=== PATIENT | male | born 1950 | race Caucasian/White ===

== ENCOUNTER → 2016-05-11 | Day surgery (SDC) | payer OTHER ==
[2016-04-27 13:02] VITALS: Ht 170.2 cm; Wt 53.6 kg
--- NOTE | 2016-05-10 14:59 | History and Physical: Surg Cnt ---
History & Physical Date May 10, 2016. Chief Complaint sinus infections History of Present Illness The patient is a 66 year old male with complaints of chronic sinusitis Additional History Hepatic Disease: No Endocrine Disorder: No Kidney Disease: No Hypertension: No Heart Disease: No Bleeding Tendencies: No Infectious Diseases: No Allergies Coded Allergies: NO KNOWN DRUG ALLERGIES (Verified Allergy, Unknown, ., 04/27/16) Home Medications Scheduled Ranitidine (Zantac), 150 MG PO HS Simvastatin (Zocor), 20 MG PO HS Physical Examination Skin: warm/dry, no rash Eyes: normal inspection, EOMI, sclerae normal ENT: normal ENT inspection, pharynx normal Head: normocephalic, atraumatic Neck: supple, no adenopathy, trachea midline Respiratory/Chest: lungs clear, normal breath sounds, no respiratory distress Cardiovascular: regular rate, rhythm, no edema, no murmur Abdomen / GI: normal bowel sounds, non tender Back: normal inspection Extremities: normal inspection, normal range of motion Neurologic/Psych: no motor/sensory deficits, alert, normal reflexes, oriented x 3 Diagnosis chronic sinusitis Plan of Treatment endoscopic sinus surgery
[~2016-05-11] VITALS: Ht 170.2 cm; Wt 53.6 kg
[~2016-05-11] MED LIST: ATROPINE SULFATE 0.1 MG/ML 5ML SYR IV PRN; BACITRACIN OINT 15 GM TUBE ONE; CEFAZOLIN 1000MG/55 ML D5W IV SCH; DEXAMETHASONE SOD INJ 4 MG/ML VIAL ONE; EpHEDrine SULFATE INJ 50 MG/ML AMP IV PRN; EpHEDrine SULFATE INJ 50 MG/ML AMP ONE; EpINEphrine INJ 1MG/ML AMP 1 MG/ML AMP ONE; FENTANYL CITRATE INJ 50 MCG/1 ML 2 ML VIAL IV PRN; FENTANYL CITRATE INJ 50 MCG/1 ML 2 ML VIAL ONE; LACTATED RINGER'S 1000ML 1,000 ML IV SCH; LIDO 2%/EPINEPHRINE 1:100000 20 ML VIAL INFIL ONE; LIDOCAINE 4% MPF SOAK 5 ML = 1 DOSE TOP ONE; LIDOCAINE HCL 2% 2 ML VIAL (20MG/ML) ONE; MIDAZOLAM HCL 1 MG/ML 2ML VIAL ONE; ONDANSETRON INJ 2 MG/ML 2 ML VIAL ONE; OXYC-57 PO; OXYCODONE/ACETAMINOPHEN 5-325 TAB PO PRN; OXYMETAZOLINE HCL 0.05% NA SPR 15 ML BTL SCH; PROPOFOL IV EMULSION 10 MG/ML 20 ML VIAL IV ONE; SIMV20TA2 PO; SODIUM CHLORIDE 0.9% 1000ML 1,000 ML IV SCH; SODIUM CHLORIDE 0.9% INJ 10 ML VIAL ONE; ZNTT/150 PO
--- NOTE | 2016-05-11 10:50 | History & Physical Bridge Note ---
H&P Re-Evaluation Bridge Note: I have examined the patient, reviewed the History & Physical and in the interval since the performance of the History & Physical I have noted the following changes of clinical significance: No changes noted
--- NOTE | 2016-05-11 13:37 | Discharge Instructions-SurgCtr ---
Discharge Instructions Date of Service May 11, 2016. Visit Reason for Visit: Chronic Sinusitis Discharge Discharge Diagnosis / Problem: same Discharge Goals Goal(s): Improve disease control Medications Stopped Medications Name(s): ADVIL- LAST DOSE LAST WEEK Activity Recommendations Activity Limitations: resume your previous activity Anesthesia . Post Anesthesia Instructions: If you have had General Anesthesia or IV Sedation: * Do not drive today. * Resume driving when surgeon permits. * Do not make important decisions or sign legal documents today. * Call surgeon for: 1. Temperature elevations greater than 101 degrees F. 2. Uncontrollable pain. 3. Excessive bleeding. 4. Persistent nausea and vomiting. 5. Medication intolerance (nausea, vomiting or rash). * For nausea and vomiting use only clear liquids such as: tea, soda, bouillon until nausea subsides, then gradually increase diet as tolerated. * If you have any concerns or questions, call your surgeon's office. If physician is unavailable and it is an emergency, call 911 or go to the nearest emergency room. . Instructions / Follow-Up Instructions / Follow-Up ACTIVITY RECOMMENDATIONS: * Being up and around is good, but no strenuous activity, heavy lifting or physical exertion for one week. * Keep your head elevated 30 degrees when lying down or sleeping. * Do not blow your nose for 48 hours, sniff back instead. * Avoid hot showers. OVER THE COUNTER MEDICATIONS: * You may use Tylenol * Avoid aspirin or aspirin containing products, e.g. as they may increase bleeding. SPECIAL CARE INSTRUCTIONS: * Expect to have bloody drainage from your nose and/or down your throat for one to three days. Change drip pad as needed. * Begin irrigating your nose with saline solution today, at least six to ten times per day and sniff back to help remove old clots or crust. * You may experience nasal and facial congestion, pain and pressure, this is normal. * Please call with any significant and/or progressive pain, redness, swelling around the eyes, visual changes, fever of 101.5 degrees F, active bleeding or any problems or concerns. * If active bleeding occurs, spray the nose three times at one minute intervals with Afrin spray and call or cell phone: . If unable to reach the doctor, go to the nearest Emergency Department. Special Diet: * Avoid extremely hot fluids. FOLLOW UP VISIT: Follow-up Visit with Dr. Saucedo If not already scheduled, please call to schedule. Diet Recommendations Home Diet: no limitations Procedures Procedures Performed: Endoscopic Sinus Surgery With Brainlab Navigation, Right & Left Frontal, Right & Left Maxillary Pending Studies Studies pending at discharge: no Medical Emergencies . Who to Call and When: Medical Emergencies: If at any time you feel your situation is an emergency, please call 911 immediately. . Non-Emergent Contact Non-Emergency issues call your: Primary Care Provider . . "Provider Documentation" section prepared by Missy Saucedo. [facility] Monitoring Program Search Results: no issues identified
[2016-05-11 14:10] VITALS: TEMP 36.4
--- NOTE | 2016-05-11 14:12 | Anesthesia Progress Nt - [facility] ---
Anesthesia Post Op Note Date & Time May 11, 2016 at 14:12 Vital Signs Pain Intensity: 0 Vital Signs Past 12 Hours Date Time Temp Pulse Resp B/P Pulse Ox O2 Delivery O2 Flow Rate FiO2 05/11/16 14:06 36.6 116/72 05/11/16 14:02 70 14 97 05/11/16 14:02 71 14 05/11/16 14:01 116/72 05/11/16 13:57 66 18 100 05/11/16 13:57 65 18 05/11/16 13:56 121/77 05/11/16 13:52 66 16 100 05/11/16 13:52 66 16 05/11/16 13:51 122/78 05/11/16 13:47 71 17 100 05/11/16 13:47 70 17 05/11/16 13:46 119/68 05/11/16 13:42 78 19 100 05/11/16 13:42 78 19 05/11/16 13:41 127/72 05/11/16 13:38 36.4 76 16 145/81 100 Mask 6 05/11/16 13:37 75 05/11/16 13:37 75 100 05/11/16 10:37 36.6 65 16 130/85 97 Room Air Notes Mental Status: alert / awake / arousable, participated in evaluation Pt Amnestic to Procedure: Yes Nausea / Vomiting: adequately controlled Pain: adequately controlled Airway Patency, RR, SpO2: stable & adequate BP & HR: stable & adequate Hydration State: stable & adequate Anesthetic Complications: no major complications apparent
[2016-05-11 14:35] VITALS: BP 135/79; PULSE 69; O2SAT 98
--- NOTE | 2016-05-11 14:50 | OPERATIVE REPORT ---
DATE OF OPERATION: 05/11/2016 PREOPERATIVE DIAGNOSIS: Chronic sinusitis. HISTORY OF PRESENT ILLNESS: This is a 66-year-old gentleman presented with recurrent chronic sinusitis which has become persistent and desired definitive treatment. DESCRIPTION OF PROCEDURE: The patient brought to the operating room and placed in the supine position. General anesthesia was induced using LMA, prepped and draped in the usual sterile manner. Nose decongested using cottonoid with solution of 4 mL of 4% Xylocaine mixed with 1 mL of epinephrine injection, 2% Xylocaine with 1:100,000 strength epinephrine was also used. [employer] device calibrated, used for the entire procedure. The right maxillary sinus was cannulated with guidewire, dilated using 6 mm balloon as was the left maxillary sinus. The left nasal frontal duct was cannulated with guidewire and dilated using the 6 mm balloon. Guidewire was left in place as a marker. Frontal sinusotomy was performed by removing the anterior wall, then the posterior wall, the agger nasi cell opening up nasal frontal duct, leaving the mucosa intact. At this point, total ethmoidectomy was performed opening up the bulla ethmoidalis going through the ground lamella into the posterior ethmoid air cells, identifying the posterior most ethmoid air cells exonerating all the posterior ethmoid air cells and then exonerating all the anterior ethmoid air cells up to the previously dilated nasal frontal duct. Maxillary sinus was opened by removing the polypoid tissue at the posterior border. The right frontal sinusotomy, total ethmoidectomy, and maxillary sinus antrostomies performed in the similar manner. Propel stents were placed with 2 mini stents in the nasal frontal ducts and 2 contour stents in the maxillary sinus ostia. The patient tolerated the procedure well, was taken to recovery area in satisfactory condition. I attest to the content of the Intraoperative Record and any orders documented therein. Any exceptions are noted below. SAJAN
== END | disposition home or self-care (01) ==
LOC: X.SURG 10:26
PROVIDERS: ATTEND Otolaryngology
DX: J32.9 Chronic sinusitis, unspecified (principal); J01.20 Acute ethmoidal sinusitis, unspecified